=== PATIENT | male | born 1980 | race Two or more races ===

== ENCOUNTER 2024-07-14 15:57 | Emergency (ER) | payer SELFPAY ==
[~2024-07-14] VITALS: Ht 175.3 cm; Wt 83.6 kg
[2024-07-14 16:24] VITALS: BP 146/94; PULSE 100; RESP 20; O2SAT 94
== END 2024-07-14 18:24 | disposition left against medical advice (07) ==
LOC: ER 15:57
DX: S61.412A Laceration without foreign body of left hand, initial encounter (principal); Z53.21 Procedure and treatment not carried out due to patient leaving prior to being seen by health care provider; W18.09XA Striking against other object with subsequent fall, initial encounter; Y93.89 Activity, other specified; Y92.89 Other specified places as the place of occurrence of the external cause; Y99.8 Other external cause status